=== PATIENT | male | born 1990 | race Caucasian/White ===

== ENCOUNTER 2016-10-16 22:10 | Emergency (ER) | payer OTHER ==
[~2016-10-16 22:10] MED LIST: BENZONATATE PO; IBUPROFEN800 MG PO; NO MEDICATIONS; ROBITUSSIN A-C10 ML PO; TAMIFLU75 M1 PO
== END 2016-10-17 01:28 | disposition home or self-care (01) ==
LOC: SED 22:10
DX: J02.9 Acute pharyngitis, unspecified (principal)
CPT/HCPCS: 87651; 99283